=== PATIENT | male | born 1945 | race Caucasian/White ===

== ENCOUNTER 2020-03-31 00:10 | Outpatient (CLI) | payer MEDICARE, SELFPAY ==
[2020-03-31 18:29] LABS: SARS-CoV-2 RNA PCR Negative
== END 2020-03-31 00:11 | disposition home or self-care (01) ==
LOC: ANHCOVIDDT 00:10
PROVIDERS: PCP Family Medicine; Visit Provider Internal Medicine Gastroenterology
DX: Z20.828 Contact with and (suspected) exposure to other viral communicable diseases (principal)
CPT/HCPCS: 87635; C9803; U0003

== ENCOUNTER 2020-04-02 04:14 | Day surgery (SDC) | payer MEDICARE, SELFPAY ==
[2020-03-24 10:50] VITALS: BMI 29.4
[2020-04-02] MEDS: LACTATED RINGERS 1,000 ML 150 ML IV CONT (07:40)
[2020-04-02 07:43] VITALS: BP 177/89; PULSE 60; RESP 16; TEMP 37.1; O2SAT 98; BMI 31.5
--- NOTE | 2020-04-02 07:54 | WPDGICN ---
Assessment and Plan Assessment and plan (1) History of colon cancer: Code(s): Z85.038 - Personal history of other malignant neoplasm of large intestine Status: Acute Assessment and Plan: Plan is for surveillance colonoscopy now and at 3-5 year intervals in the future. Because of his discomfort high-fiber diet with fiber supplements are encourage. Further recommendations may be given after endoscopy. (2) Family history of colonic polyps: Code(s): Z83.71 - Family history of colonic polyps Status: Acute GI Consult Note Consult date/time: 04/02/20 07:54 HPI: Beulah Anguiano is a 74 year old male presents for surveillance colonoscopy. Patient has a history of colon cancer resected in 1995. There been colon polyps in several family members. Patient states that his weight appetite are normal. He has however notice some right lower quadrant pressure and tightening. Some regularity of bowel habits have been noted. He denies any weight loss or bleeding. Review of Systems Review of Systems: All systems reviewed & are unremarkable except as noted in HPI and below PMFSH Social History Social History Smoking packs per day: 2 Smoking cigarettes per day: 40.0 Smoking status: Former smoker Alcohol intake: former Alcohol use details: NONE SINCE 1972 Substance use type: does not use Living arrangements: with family Spiritual care concerns: No Meds Home Medications and Allergies Home Medications Medication Instructions Recorded Confirmed Type acetaminophen [Tylenol Arthritis 650 mg PO Q8H PRN 03/24/20 03/24/20 History Pain] aspirin [Aspirin Low Dose] 81 mg PO DAILY 03/24/20 03/24/20 History calcium carbonate-vit D3-min 1 tablet PO DAILY 03/24/20 03/24/20 History [Calcium 600 + Minerals] coenzyme Q10 [Co Q-10] 100 mg PO DAILY 03/24/20 03/24/20 History diphenhydramine HCl [Benadryl 25 mg PO HS PRN 03/24/20 03/24/20 History Allergy] fluticasone propionate 2 spray INTRANASAL PRN PRN 03/24/20 03/24/20 History lqamkibp-vva-II-lycopen-lutein 1 tablet PO DAILY 03/24/20 03/24/20 History [Centrum Silver] vitamin B comp and C no.3 [B 1 cap PO DAILY 03/24/20 03/24/20 History Complex Plus Vitamin C] Allergies Allergy/AdvReac Type Severity Reaction Status Date / Time pseudoephedrine Allergy Mild RASH Verified 04/02/20 07:42 Vital Signs Vital Signs - 24 hr 04/02/20 07:43 Temperature 98.7 F Pulse Rate 60 Respiratory Rate 16 Blood Pressure 177/89 H Pulse Oximetry 98 Exam Narrative: Exam Narrative: Physical exam reveals patient to be alert. Vital signs stable. HEENT exam unremarkable. Lungs are clear to auscultation and percussion. Heart is without murmur or extra sounds. Abdominal exam bowel sounds are present soft nontender well-healed scar in the right mid abdomen. He notices discomfort in the right groin but no masses or lesions are evident in this area period is not particularly tender on palpation. Digital rectal exam is normal.
--- NOTE | 2020-04-02 08:14 | WPDANESEPPF ---
Anes - Initial Pre Proc Eval Procedure: Operation Date: 04/02/20 08:30 Proposed Procedures p Screening Colonoscopy - Seng Garica MD Date/Time: 04/02/20 08:14 Surgeon: Seng Garcia MD Pre Op Diagnosis: History of Colon CA Patient Data Age: 74 Gender: M Height: 5 ft 8 in Weight: 94 kg Last Vital Signs Temp 98.7 F 04/02/20 07:43 Pulse 60 04/02/20 07:43 Resp 16 04/02/20 07:43 BP 177/89 H 04/02/20 07:43 Pulse Ox 98 04/02/20 07:43 Allergies Allergy/AdvReac Type Severity Reaction Status Date / Time pseudoephedrine Allergy Mild RASH Verified 04/02/20 07:42 Home Medications Medication Instructions Recorded Confirmed Type acetaminophen [Tylenol Arthritis 650 mg PO Q8H PRN 03/24/20 03/24/20 History Pain] aspirin [Aspirin Low Dose] 81 mg PO DAILY 03/24/20 03/24/20 History calcium carbonate-vit D3-min 1 tablet PO DAILY 03/24/20 03/24/20 History [Calcium 600 + Minerals] coenzyme Q10 [Co Q-10] 100 mg PO DAILY 03/24/20 03/24/20 History diphenhydramine HCl [Benadryl 25 mg PO HS PRN 03/24/20 03/24/20 History Allergy] fluticasone propionate 2 spray INTRANASAL PRN PRN 03/24/20 03/24/20 History fdheqasd-lum-KA-lycopen-lutein 1 tablet PO DAILY 03/24/20 03/24/20 History [Centrum Silver] vitamin B comp and C no.3 [B 1 cap PO DAILY 03/24/20 03/24/20 History Complex Plus Vitamin C] Patient hx anesthesia problems: none Family hx anesthesia problems: none PMFSH Past Medical History Medical History (Updated 04/02/20 @ 08:05 by Mart Comer MD) H/O bronchitis H/O colon cancer, stage I Social History Social History Smoking packs per day: 2 Smoking cigarettes per day: 40.0 Smoking status: Former smoker Alcohol intake: former Alcohol use details: NONE SINCE 1972 Substance use type: does not use Living arrangements: with family Spiritual care concerns: No Anes - Eval Final PreProcedure Day of Procedure 04/02/20 08:14 Patient weight: overweight Heart: regular rate and rhythm Lungs: clear to auscultation Airway: Mallampati scale class II Neurological: alert and oriented Last oral intake: >/= 8 hours ASA classification: III Emergent: no Anesthetic plan: proceed Anesthesia type and monitoring: general GIVS and standard monitoring Informed Consent: The patient's anesthetic plan and its attendant risks and benefits were discussed with the patient/family/POA. Questions were solicited and answers provided to the satisfaction of the patient/family/POA.
[2020-04-02 08:50] VITALS: BP 155/91; PULSE 67; RESP 22; O2SAT 99
[2020-04-02 09:00] VITALS: BP 155/83; PULSE 69; RESP 18; O2SAT 99
[2020-04-02 09:10] VITALS: BP 162/78; PULSE 64; RESP 18; O2SAT 98
== END 2020-04-02 09:35 | disposition home or self-care (01) ==
PROVIDERS: PCP Family Medicine; Visit Provider Internal Medicine Gastroenterology
PROC: 0DJD8ZZ Inspection of Lower Intestinal Tract, Via Natural or Artificial Opening Endoscopic (ICD-10-PCS; CPT 45378; principal; 2020-04-02 08:30)
DX: Z12.11 Encounter for screening for malignant neoplasm of colon (principal); K64.8 Other hemorrhoids; Z98.0 Intestinal bypass and anastomosis status; Z90.49 Acquired absence of other specified parts of digestive tract; Z85.038 Personal history of other malignant neoplasm of large intestine; R10.31 Right lower quadrant pain; Z83.71 Family history of colonic polyps; Z87.891 Personal history of nicotine dependence; Z79.82 Long term (current) use of aspirin
CPT/HCPCS: G0105; J2704; J7120